=== PATIENT | female | born 1970 | race Caucasian/White ===

== ENCOUNTER → 2016-08-11 | Outpatient (CLI) | payer OTHER ==
--- NOTE | 2016-08-11 14:23 | MA ---
Bilateral Screening Digital Mammograms with iCAD Clinical Indications: Routine screening mammograms. Technique: Standard digital cephalocaudal and mediolateral oblique Kike and nonEklund: projections were obtained. This examination was processed by the [facility] computer-aided detection system. Comparison: July 2015, July 2014 and November 2009 Breast Parenchymal Density: B Findings: Bilateral breast implants are in place. There are no masses, no suspicious calcifications, and no secondary signs of malignancy. Impression: Negative mammogram. BI-RADS 1. Negative. Recommendation: Routine screening mammograms in one year. The patients information is entered into a reminder system with a target due date for her next mammog david. Negative mammography should not preclude additional workup of a clinically suspicious finding.
== END ==
LOC: FIMAGING 08:58
DX: Z12.31 Encounter for screening mammogram for malignant neoplasm of breast (principal)
CPT/HCPCS: G0202

== ENCOUNTER → 2017-08-14 | Outpatient (CLI) | payer OTHER | LOC: FIMAGING 12:37 | PROVIDERS: ATTEND Obstetrics & Gynecology | DX: Z12.31 Encounter for screening mammogram for malignant neoplasm of breast (principal) ==

== ENCOUNTER → 2018-10-03 | Outpatient (CLI) | payer OTHER | LOC: FIMAGING 13:23 | PROVIDERS: ATTEND Obstetrics & Gynecology | DX: Z12.31 Encounter for screening mammogram for malignant neoplasm of breast (principal); R92.1 Mammographic calcification found on diagnostic imaging of breast ==

== ENCOUNTER → 2018-10-24 | Outpatient (CLI) | payer OTHER | LOC: FIMAGING 12:17 | PROVIDERS: ATTEND Obstetrics & Gynecology | DX: R92.0 Mammographic microcalcification found on diagnostic imaging of breast (principal) ==